=== PATIENT | male | born 1990 | race Caucasian/White ===

== ENCOUNTER 2017-07-30 11:37 | Emergency (ER) | payer SELFPAY ==
[~2017-07-30] VITALS: Ht 175.3 cm; Wt 104.3 kg
[2017-07-30 12:15] VITALS: BP 151/63
[2017-07-30] MEDS ORDERED: ORPHENADRINE CITRATE 60 MG/2 ML VIAL. IM ONE (12:20)
[2017-07-30] MEDS ORDERED: MORPHINE SULFATE 10 MG/ML SYRINGE. IM ONE (12:20)
[2017-07-30] MEDS ORDERED: CYCL-331 PO (12:29)
[2017-07-30] MEDS ORDERED: HYDR-963 PO ×2 (12:29→12:31)
--- NOTE | 2017-07-30 12:40 | ED.ADGEN ---
Past History Past Medical History: No Pertinent History Past Surgical History: No Surgical History Alcohol Use: Sober Drug Use: None Adult General Chief Complaint Chief Complaint back pain HPI HPI Patient is a 27-year-old male who presents with acute low back pain. Patient states he was being over picking up sticks yesterday when he felt sudden popping sensation in his low back. Pain radiates anteriorly above both knees. It is described as sharp and rated moderate to severe and is worse with palpation, ambulation and trunk movement. It is not related position change or rest. No urinary incontinence, saddle anesthesia, motor weakness or loss of sensation. Denies history of chronic back pain. No other acute symptoms or complaints. Patient recently relocated to this area does not currently have a primary care physician. [] Review of Systems Review of Systems Review symptoms as per history of present illness. All other review symptoms are negative. All other systems were reviewed and found to be within normal limits, except as documented in this note. Current Medications Current Medications Current Medications Medications (Trade) Dose Ordered Sig/Sana Start Time Stop Time Status Last Admin Dose Admin Morphine Sulfate (Morphine 10mg Syringe) 10 mg 1X ONCE 07/30/17 12:20 07/30/17 12:21 DC 07/30/17 12:05 10 MG Orphenadrine Citrate (Norflex) 60 mg 1X ONCE 07/30/17 12:20 07/30/17 12:21 DC 07/30/17 12:06 60 MG Allergies Allergies Allergies Coded Allergies Type Severity Reaction Last Updated Verified No Known Drug Allergies 07/30/17 No Physical Exam Physical Exam Constitutional: Well developed, well nourished, moderate discomfort secondary to pain. [] HENT: Normocephalic, atraumatic, bilateral external ears normal, oropharynx moist, no oral exudates, nose normal. [] Eyes: PERRLA, EOMI, conjunctiva normal, no discharge. [] Neck: Normal range of motion, no tenderness, supple, no stridor. [] Cardiovascular:Heart rate regular rhythm, no murmur [] Lungs & Thorax: Bilateral breath sounds clear to auscultation [] Abdomen: Bowel sounds normal, soft, no tenderness, no masses, no pulsatile masses. [] Skin: Warm, dry, no erythema, no rash. [] Back: No line tenderness, diffuse mid to low or vertebral back pain,. [] Extremities: No tenderness, no cyanosis, no clubbing, ROM intact, no edema. Straight leg raising tests.[] Neurologic: Alert and oriented X 3, extremities, no motor weakness loss of sensation, reflexes 2+ and symmetric throughout.[] Psychologic: Affect normal, judgement normal, mood normal. [] Current Patient Data Vital Signs Vital Signs Date Time Temp Pulse Resp B/P (MAP) Pulse Ox O2 Delivery O2 Flow Rate FiO2 07/30/17 12:15 59 16 151/63 (92) 97 Room Air 07/30/17 11:42 98.4 EKG EKG [] Radiology/Procedures Radiology/Procedures [] Course & Med Decision Making Course & Med Decision Making Pertinent Labs and Imaging studies reviewed. (See chart for details) [Acute mechanical back pain without neurologic deficits. Symptoms improved with treatment. Recommend supportive care with close PCP follow-up. Return precautions reviewed.] Final Impression Final Impression [1. Acute lumbago] Kristi Disclaimer Dragon Disclaimer This electronic medical record was generated, in whole or in part, using a voice recognition dictation system. SHELLY LOWERY DO Jul 30, 2017 12:40
== END 2017-07-30 11:42 | disposition home or self-care (01) ==
LOC: ER 11:37
DX: M54.5 Low back pain (principal)
CPT/HCPCS: 96372; 99284; J2270; J2360